=== PATIENT | male | born 1955 | race Caucasian/White ===

== ENCOUNTER 2016-07-23 16:17 | Emergency (ER) | payer SELFPAY ==
[~2016-07-23 16:17] MED LIST: ASPIRIN CHEWABL81 MG PO; GLUCOPHAGE1000 MG PO; HCTZ25 MG PO; LANTUS100 UNIT/1 SC; LISINOPRIL 10MG10 MG PO; NORCO 5-325 TA1 EACH PO; NORVASC5 MG PO; XARELTO10 MG PO
== END 2016-07-23 19:45 | disposition home or self-care (01) ==
LOC: FER 16:17
DX: S80.11XA Contusion of right lower leg, initial encounter (principal); M79.662 Pain in left lower leg; E11.9 Type 2 diabetes mellitus without complications; I10 Essential (primary) hypertension; Z98.890 Other specified postprocedural states; Y93.H1 Activity, digging, shoveling and raking
CPT/HCPCS: 93971